=== PATIENT | male | born 1995 | race Caucasian/White ===

== ENCOUNTER 2016-08-19 09:41 | Emergency (ER) | payer BC ==
[~2016-08-19] VITALS: Ht 200.7 cm; Wt 73.1 kg
[~2016-08-19 09:41] MED LIST: AMOX250T PO; HYDR-4074 PO; OXYC1TAB8 PO
--- OUTSIDE RECORDS SUMMARY | 2016-08-19 09:44 | XMS REPORT | Referral Summary ---
Author Author [facility] Organization [facility] Address Unknown Phone Unavailable Encounter VC Date(s): 12/02/14 - 12/02/14 [facility] [address] [place] [address] Final: Pre-Procedural Laboratory Examination Final: DISTURBANCES IN TOOTH ERUPTION Discharge Disposition: 01-Home or Self Care Attending Physician: Shagufta Romero DDS Admitting Physician: PROVIDER, NOTINSYSTEM Vital Signs No data available for this section Problem List No data available for this section Allergies, Adverse Reactions, Alerts No data available for this section Medications No data available for this section Results Hematology Most recent to 1 oldest [Reference Range]: WBC [4.8-10.8 4.4 10*3/uL 10*3/uL] *LOW* (12/02/14 9:37 AM) RBC [4.60-6.20 5.26 10*6/uL 10*6/uL] (12/02/14 9:37 AM) Hgb [14.0-18.0 16.1 gm/dL gm/dL] (12/02/14 9:37 AM) Hct [42.0-52.0 %] 46.5 % (12/02/14 9:37 AM) MCV [82.0-99.0 fL] 88.4 fL (12/02/14 9:37 AM) MCH [27.0-32.0 pg] 30.6 pg (12/02/14 9:37 AM) MCHC [32.0-36.0 34.6 gm/dL gm/dL] (12/02/14 9:37 AM) RDW [11.5-14.5 %] 13.3 % (12/02/14 9:37 AM) Platelet [150-400 165 10*3/uL 10*3/uL] (8/6/15 9:37 AM) MPV [9.4-12.3 fL] 10.9 fL (12/02/14 9:37 AM) Immature 0.2 % Granulocytes (12/02/14 9:37 AM) [0.0-1.0 %] Neutrophils [51-75 54 % %] (12/02/14 9:37 AM) Lymphocytes [20-46 31 % %] (12/02/14 9:37 AM) Monocytes [4-11 %] 8 % (12/02/14 9:37 AM) Eosinophils [0-4 %] 6 % *HI* (12/02/14 9:37 AM) Basophils [0-2 %] 1 % (12/02/14 9:37 AM) Neutro Absolute 2.39 10*3 [1.90-7.00 10*3] (12/02/14 9:37 AM) Lymph Absolute 1.37 10*3 [0.80-3.30 10*3] (12/02/14 9:37 AM) [place] Absolute 0.37 10*3 [0.30-1.00 10*3] (12/02/14 9:37 AM) Eos Absolute 0.24 10*3 [0.00-0.50 10*3] (12/02/14 9:37 AM) Baso Absolute 0.02 10*3 [0.00-0.20 10*3] (12/02/14 9:37 AM) Immunizations No data available for this section Procedures Procedure Date Related Diagnosis Body Site Collection of venous blood by venipuncture 12/02/14 Social History No data available for this section Assessment and Plan No data available for this section
--- OUTSIDE RECORDS SUMMARY | 2016-08-19 09:44 | XMS REPORT | Continuity of Care Document ---
Author Author [facility] Organization [facility] Address Unknown Phone Unavailable Allergies Active Description Code Type Severity Reaction Onset Reported/Identified Relationship to Patient Clinical Status Yes hydrocodone 1554 1 N/A hives, swelling, fever Medications Problems Date Dx Coded Attending Type Code Diagnosis Diagnosed By 12/06/2014 Shagufta Romero Final 520.6 DISTURBANCES IN TOOTH ERUPTION 12/06/2014 Shagufta Romero Reason V72.63 Pre-Procedural Laboratory Examination Procedures Results Encounters ACCT No. Visit Date/Time Discharge Status Pt. Type Provider Facility Loc./Unit Complaint [id number] 12/02/2014 09:22:00 2014 23:59:00 DIS Outpatient Shagufta Romero [facility] on [facility] [place] Teeth Removed, CBC
[2016-08-19 09:45] VITALS: Ht 200.7 cm; Wt 73.1 kg
--- NOTE | 2016-08-19 09:54 | NUR ---
PROVIDER DR. FUNES AT BEDSIDE FOR EXAM.
--- NOTE | 2016-08-19 10:06 | ERPDOC ---
Departure Disposition Decision Date: Aug 19, 2016 Disposition Decision Time: 11:07 Disposition: 01 DISCHARGED HOME, SELF-CARE Impression Impression Impression: Primary Impression: Torticollis, acute Severity: Moderate Condition: Improved Seen By: Physician only Referrals: RAMIN COLLINS (Family) 2 Days Patient Instructions: Acute Neck Pain (ED) Problems/Meds/Labs Reviewed?: Yes Medications reviewed and manag: Yes Follow up care ordered?: Yes Mental Status: Alert, Oriented Scripts Cyclobenzaprine HCl (Cyclobenzaprine HCl) 10 Mg Tablet 10 MG PO TID Y for MUSCLE SPASM for 5 Days, #15 TAB 0 Refills Prov: HUBER FUNES DO 08/19/16 Naproxen (Naprosyn) 500 Mg Tablet 1 TAB PO BID Y for PAIN for 10 Days, #20 TAB 0 Refills Prov: HUBER FUNES DO 08/19/16 Oxycodone HCl/Acetaminophen (Percocet 5-325 mg Tablet) 5-325 Tablet 1 TAB PO Q4HR Y for PAIN for 2 Days, #12 TAB 0 Refills Prov: HUBER FUNES DO 08/19/16 HPI - General Medical General Chief Complaint: Neck Pain Stated Complaint: NECK PAIN Time Seen by Provider: 09:44 Source: patient Exam Limitations: no limitations HPI - General Medical Initial Comments 21-year-old male presents to the emergency department with a chief complaint of pain in his neck. Patient noted onset of symptoms 48 hours ago. Patient noted onset of symptoms after sleeping in an awkward position on his family's couch. Patient describes his pain as to moderate-severe. The pain as sharp and spasmatic. No radiation. Patient denies any other complaints or associated symptoms. Patient notes that the pain increases with movement of the neck. Patient was at home when his symptoms began. Symptoms have been persistent in nature since onset. Occurred At: home Onset: Gradual Allergies: Coded Allergies: hydrocodone (Verified Allergy, Mild, RASH, 08/19/16) Past History Pediatric PMH History: Full-Term Illnesses: Otitis Media, Pharyngitis Hospitalizations: None Past Medical History Pt denies signifigant PMH Psychological: ADHD Pediatric Surgical Hx Surgeries: Myringotomy tubes Surgical History Joint: knee Family History Family History: Negative Vaccines Hx Influenza Vaccination: No Social History Smoking Status: Current every day smoker Substance Use Type: does not use Alcohol Intake: none Review of Systems Constitutional Constitutional: DENIES: chills, fever Eyes General: DENIES: erythema, exudate Lids/Accessories: DENIES: erythema, swelling Vision: DENIES: acuity, blurring ENMT Ears: DENIES: drainage, erythema Hearing: DENIES: hearing loss Balance: DENIES: ataxia, falling to one side Sinuses: DENIES: congestion, pain Nose: DENIES: nosebleeds, pain Mouth/Throat: DENIES: painful swallowing, sore throat Teeth: DENIES: pain Jaw: DENIES: pain Cardiovascular Cardiac: DENIES: chest pain, dyspnea on exertion Rhythm/Rate: DENIES: irregular beat, palpitations Vascular: DENIES: pedal edema, unilateral swelling Pulmonary Respiratory: DENIES: cough, dyspnea, pleuritic chest pain, sputum GI Upper Abdomen: DENIES: nausea, pain, vomiting Lower Abdomen: DENIES: diarrhea, pain General: DENIES: dysuria, frequency Musculoskeletal General: spasm, tenderness, DENIES: joint pain Integumentary Skin: DENIES: itching, rash Neurological General: DENIES: change in strength, headache, numbness, weakness Psychiatric Psychiatric: DENIES: emotional instability, suicidal ideation/attempt Endocrine Endocrine: DENIES: polydipsia, polyphagia Hematologic/Lymphatic Hematologic/Lymphatic: DENIES: frequent nosebleeds, lymphadenopathy Allergic/Immunological Allergic/Immunoligical: DENIES: allergic reactions, hives Physical Exam General General Nourishment: well nourished, well developed, appears stated age, no acute distress, adult General Body Habitus: well groomed Vitals and Pain First Documented Vital Signs Date Time Temp Pulse Resp B/P Pulse Ox O2 Delivery O2 Flow Rate FiO2 08/19/16 09:45 98.4 68 16 136/85 98 Room Air Weight: Kilograms: 73.100 Height (feet): 6 Height (inches): 7.00 Triage Pain Scale: RN VS reviewed by Provider: Yes Normal Exams: Head: Normocephalic w/o trauma Eyes: Pupils are PERRLA w/ EOMI, No scleral icterus, irritation, or foreign bodies noted ENMT: No facial trauma, nasal exudates, pharyngeal erythema, or exudates are noted Dental: No fractured, loose, or missing teeth noted Chest/Resp: Clear all mckeon, with good airflow, and symmetry bilaterally CV: Regular rate and rhythm, without murmur or gallop, Pulses 2+ all extremities, capillary refill, <2 seconds all ext., no pedal edema noted Abdomen: Bowel sounds positive, soft, non-tender, non-distended, no hepatosplenomegaly, masses or bruits noted Lymphatic: No lymphadenopathy, or lymphedema noted Musculoskeletal: No tenderness, or deformity noted, good range of motion, all extremities Integumentary: No rashes, hives, or bruising noted, hair and nails, without abnormality Neurologic: Patient is alert, and oriented, cranial nerves, motor/sensory/ cerebellar, exams w/o gross deficits, to observation Psychiatric: Patient exhibits, appropriate attention, emotion and affect Neck (brief) Comments No midline tenderness or deformity. + R paraspinal muscle spasm with tenderness to palpation. No carotid bruit. Neurologic (brief) Comments Alert and oriented x 4. CN 2-12 intact. Normal sensation. Normal motor. Normal coordination. Normal gait. Normal strength. Reflexes 2/4 in all extremities. Absent Babinski bilaterally. Normal speech. No focal neurologic deficit. Unremarkable neurologic examination. Differential Diagnoses Considering: Other (Muscle Spasm / Strain / Sprain / Fracture) Progress Results/Orders Orders Procedure Category Date Status Time Ct Cervical Spine W/O CT 08/19/16 Taken Contrast 10:01 Ketorolac (Toradol) PHA 08/19/16 Complete 11:15 Orphenadrine (Norflex) PHA 08/19/16 Complete 11:15 Medications Current ED Medications Ketorolac Tromethamine (Toradol) 60 mg O ONCE IM Last administered on 11:18; Start 08/19/16 at 11:15; Stop 08/19/16 at 11:17; Status DC Orphenadrine Citrate (Norflex) 60 mg O ONCE IM Last administered on 08/19/16t 11:18; Start 08/19/16 at 11:15; Stop 08/19/16 at 11:17; Status DC Progress Progress CT scan is unremarkable except for muscle spasm of the neck. Patient is given 60 mg of Toradol IM times one and 60 mg Norflex IM 1 with improvement of symptoms. Patient is discharged home in improved condition. He is to follow up as instructed. Patient is to return to the emergency department if his condition worsens or changes in any manner. Patient is in agreement with the current plan of management. He is to follow up as instructed. Patient is provided with prescriptions for Naprosyn, Flexeril, and Percocet. Patient has used Percocet in the past without difficulty. CT CT : CT: C-Spine no contrast Interpretation: Normal (cervical muscle spasm. No acute fracture.), Faxed Report HUBER FUNES DO Aug 19, 2016 10:06
--- NOTE | 2016-08-19 10:12 | NUR ---
PAIN DR. FUNES INFORMED PT PAIN -02/05. NO NEW ORDERS REC'D.
--- OUTSIDE RECORDS SUMMARY | 2016-08-19 10:12 | XMS REPORT | Continuity of Care Document ---
Author Author [facility] Organization [facility] Address Unknown Phone Unavailable Allergies Active Description [...] Status Pt. Type Provider Facility Loc./Unit Complaint [id number] 12/02/2014 09:22:00 2014 23:59:00 DIS Outpatient Shagufta Romero [facility] [place] Teeth Removed, CBC
--- NOTE | 2016-08-19 10:23 | NUR ---
CT NOTIFIED OF ORDERS.
--- NOTE | 2016-08-19 10:30 | NUR ---
CT PT TO CT BY W/C AT THIS TIME.
[2016-08-19] MEDS ORDERED: NO HOME MEDICATIONS (10:33)
--- NOTE | 2016-08-19 10:36 | NUR ---
RETURN PT RETURNED FROM CT AT THIS TIME.
--- NOTE | 2016-08-19 10:37 | NUR ---
PAIN PT REPORTS NO CHANGE IN PAIN. ADVISED PROVIDER WANTS CT RESULTS PRIOR TO ANY MEDICATION ADM. HEAT PACK PROVIDED FOR COMFORT. DENIES FURTHER NEEDS, CALL LIGHT WITHIN REACH.
[2016-08-19] MEDS ORDERED: CYCL-375 PO (11:09)
[2016-08-19] MEDS ORDERED: NAPR500T PO (11:09)
[2016-08-19] MEDS ORDERED: OXYC1TAB8 PO (11:09)
[2016-08-19] MEDS ORDERED: KETOROLAC 60mg/2ml INJECTION IM ONE (11:15)
[2016-08-19] MEDS ORDERED: ORPHENADRINE 60mg/2ml INJECTION IM ONE (11:15)
--- NOTE | 2016-08-19 11:17 | NUR ---
MED PT GIVEN INSTRUCTION REGARDING TORADOL AND NORFLEX. UNDERSTANDING VERBALIZED.
[2016-08-19 11:42] VITALS: BP 140/85; PULSE 66; RESP 16; TEMP 98.4; O2SAT 98
--- NOTE | 2016-08-19 11:42 | NUR ---
DISCHARGE WRITTEN INSTRUCTIONS WITH FLEXERIL, NAPROXEN, AND PERCOCET RX REVIEWED AND SENT WITH PT. PT VERBALIZES UNDERSTANDING OF DI AND MEDICATIONS, DENIES QUESTIONS. REORTS DECREASE IN PAIN TO 4-5/10 AND IS SITTING WITH HEAD IN MORE UPRIGHT POSITION. PT AMBULATES OUT OF ER WITH STEADY GAIT ACCOMP BY MOTHER AT THIS TIME.
--- NOTE | 2016-08-20 08:22 | DI ---
Indication: ITS.REASON: Neck pain PROCEDURE: CT CERVICAL SPINE W/O CONTRAST: Encounter: Initial Comparison: February 08, 2011 Technique: Axial CT images through the cervical spine were performed without contrast. Coronal and sagittal reformatted images were also obtained. Automated Exposure Control and Iterative Reconstruction dose reducing techniques were utilized. FINDINGS: The alignment of the cervical spine is normal. There is no evidence of acute fracture or subluxation of the cervical spine. The facet joints are well aligned with preservation of the intervertebral disk and facet joints. The atlantoaxial articulation, dens, and upper cervical spine demonstrate no subluxation. There is no evidence of significant spinal stenosis, foraminal compromise, or significant disk herniation. The paraspinal soft tissues and spinal canal appear unremarkable. IMPRESSION: No acute traumatic abnormality of the cervical spine. There is a preliminary report by virtual radiologic. .
== END 2016-08-19 11:42 | disposition home or self-care (01) ==
LOC: ED 09:41
DX: M43.6 Torticollis (principal)
CPT/HCPCS: 72125; 96372; 99284; J1885; J2360